=== PATIENT | male | born 1940 | race Caucasian/White ===

== ENCOUNTER → 2016-07-07 | Outpatient (CLI) | payer MEDICARE | END | disposition home or self-care (01) | LOC: PCVCCLINIC 10:20 | PROVIDERS: ATTEND Internal Medicine Cardiovascular Disease | DX: I34.8 Other nonrheumatic mitral valve disorders (principal); G47.33 Obstructive sleep apnea (adult) (pediatric); E78.5 Hyperlipidemia, unspecified | CPT/HCPCS: 85610 ==

== ENCOUNTER → 2016-08-05 | Outpatient (CLI) | payer MEDICARE | END | disposition home or self-care (01) | LOC: PCVCCLINIC 10:40 | PROVIDERS: ATTEND Internal Medicine Cardiovascular Disease | DX: Z95.2 Presence of prosthetic heart valve (principal) | CPT/HCPCS: 85610 ==

== ENCOUNTER → 2016-09-01 | Outpatient (CLI) | payer MEDICARE | END | disposition home or self-care (01) | LOC: PCVCCLINIC 10:24 | PROVIDERS: ATTEND Internal Medicine Cardiovascular Disease | DX: I48.91 Unspecified atrial fibrillation (principal) | CPT/HCPCS: 85610; G0463 ==

== ENCOUNTER → 2016-09-14 | Outpatient (CLI) | payer MEDICARE | END | disposition home or self-care (01) | LOC: PCVCCLINIC 13:39 | PROVIDERS: ATTEND Internal Medicine Cardiovascular Disease | DX: I65.23 Occlusion and stenosis of bilateral carotid arteries (principal); I48.91 Unspecified atrial fibrillation; R09.89 Other specified symptoms and signs involving the circulatory and respiratory systems; E78.00 Pure hypercholesterolemia, unspecified; I49.5 Sick sinus syndrome; I25.10 Atherosclerotic heart disease of native coronary artery without angina pectoris; Z95.2 Presence of prosthetic heart valve | CPT/HCPCS: 80061; 93880; G0463 ==

== ENCOUNTER → 2016-10-02 | Outpatient (CLI) | payer MEDICARE | END | disposition home or self-care (01) | LOC: PCVCCLINIC 09:56 | PROVIDERS: ATTEND Internal Medicine Cardiovascular Disease | DX: Z95.2 Presence of prosthetic heart valve (principal) | CPT/HCPCS: 85610 ==

== ENCOUNTER → 2016-11-06 | Outpatient (CLI) | payer MEDICARE | END | disposition home or self-care (01) | LOC: PCVCCLINIC 11:47 | PROVIDERS: ATTEND Internal Medicine Cardiovascular Disease | DX: I48.2 Chronic atrial fibrillation (principal); I34.1 Nonrheumatic mitral (valve) prolapse; I25.10 Atherosclerotic heart disease of native coronary artery without angina pectoris; E78.00 Pure hypercholesterolemia, unspecified; I50.9 Heart failure, unspecified; Z79.01 Long term (current) use of anticoagulants; Z95.2 Presence of prosthetic heart valve | CPT/HCPCS: 80061; 85610 ==

== ENCOUNTER → 2016-12-24 | Outpatient (CLI) | payer MEDICARE | LOC: PCVCCLINIC 10:36 | PROVIDERS: ATTEND Internal Medicine Cardiovascular Disease | DX: I25.10 Atherosclerotic heart disease of native coronary artery without angina pectoris (principal); I48.0 Paroxysmal atrial fibrillation; I42.8 Other cardiomyopathies; E78.00 Pure hypercholesterolemia, unspecified; I10 Essential (primary) hypertension; G47.33 Obstructive sleep apnea (adult) (pediatric); T14.8 Other injury of unspecified body region; Z95.2 Presence of prosthetic heart valve; Z79.01 Long term (current) use of anticoagulants; X58.XXXD Exposure to other specified factors, subsequent encounter | CPT/HCPCS: 80061; 85610; G0463 ==

== ENCOUNTER → 2017-01-07 | Outpatient (CLI) | payer MEDICARE | END | disposition home or self-care (01) | LOC: PCVCCLINIC 10:20 | PROVIDERS: ATTEND Internal Medicine Cardiovascular Disease | DX: Z51.81 Encounter for therapeutic drug level monitoring (principal); I48.2 Chronic atrial fibrillation; E03.9 Hypothyroidism, unspecified; I25.10 Atherosclerotic heart disease of native coronary artery without angina pectoris; Z95.0 Presence of cardiac pacemaker; I50.9 Heart failure, unspecified; Z95.2 Presence of prosthetic heart valve; I05.9 Rheumatic mitral valve disease, unspecified; E78.00 Pure hypercholesterolemia, unspecified; Z79.01 Long term (current) use of anticoagulants | CPT/HCPCS: 85610 ==

== ENCOUNTER → 2017-01-11 | Outpatient (CLI) | payer MEDICARE | END | disposition home or self-care (01) | LOC: PCVCCLINIC 10:38 | PROVIDERS: ATTEND Internal Medicine Cardiovascular Disease | DX: Z51.81 Encounter for therapeutic drug level monitoring (principal); I34.1 Nonrheumatic mitral (valve) prolapse; I48.0 Paroxysmal atrial fibrillation; E03.9 Hypothyroidism, unspecified; I25.10 Atherosclerotic heart disease of native coronary artery without angina pectoris; I42.8 Other cardiomyopathies; I48.2 Chronic atrial fibrillation; I50.9 Heart failure, unspecified; E78.00 Pure hypercholesterolemia, unspecified; K21.0 Gastro-esophageal reflux disease with esophagitis; I49.5 Sick sinus syndrome; Z95.2 Presence of prosthetic heart valve; Z79.01 Long term (current) use of anticoagulants | CPT/HCPCS: 85610 ==

== ENCOUNTER → 2017-02-18 | Outpatient (CLI) | payer MEDICARE ==
--- NOTE | 2017-02-18 12:53 | PCVCIMAG ---
APPROVED REPORT Study performed: 02/18/2017 08:21:18 EXAM: Comprehensive 2D, Doppler, and color-flow Echocardiogram Patient Location: Echo lab Status: routine BSA: 2.20 HR: 71 bpmBP: 126/64 mmHg Rhythm: Atrial Fibrillation Other Information Study Quality: Technically Difficult Indications Mitral Valve Disease Pacemaker CAD Cardiomyopathy MVR St Tio mechanical, Hx old ND 2D Dimensions LVEF(%): 29.64 (>50%) IVSd: 8.32 (7-11mm)LVOT Diam: 26.36 (18-24mm) LVDd: 56.90 mm PWd: 9.48 (7-11mm)Ascending Ao: 31.70 (22-36mm) LVDs: 48.88 (25-40mm) Left Atrium: 64.64 (27-40mm) Aortic Root: 25.30 mm LV Single Plane 4CH: 30.21 % LV Single Plane 2CH: 33.79 %Cardenas's LVEF: 32.00 % Biplane EF: 34.3 % Volumes Left Atrial Volume (Systole) Single Plane 4CH: 228.97 mLSingle Plane 2CH: 152.89 mL Biplane LA Volume: 194.00 mLLA ESV Index: 88.00 mL/m2 Aortic Valve AoV Peak Candel[place].: 0.99 m/s AO Peak Gr.: 4.18 mmHgLVOT Max P.72 mmHg LVOT Max V: 0.78 m/s STEVE Vmax: 4.31 cm2 AI Vmax: 3.94 m/s AI [place]: 2.11 m/s2 AI PHT: 546.81 ms Mitral Valve MV Peak Gr.: 11.32 mmHg MV Mean Gr.: 5.16 mmHg MV E Max Candelario.: 1.56 m/s MV Max Candelario.: 1.67 m/s MV Mean Candelario.: 1.01 m/s MV VTI: 302.15 mm MV PHT: 58.02 ms MVA (PHT): 3.79 cm2 IVRT: 103.81 ms TDI E/Lateral E': 31.20E/Medial E': 26.00 Medial E' Candelario.: 0.06 m/s Lateral E' Candelario.: 0.05 m/s Pulmonary Valve PV Peak Candelario.: 1.21 m/sPV Peak Gr.: 5.91 mmHg Tricuspid Valve TR Peak Candelario.: 3.07 m/s TR Peak Gr.: 37.82 mmHg TV Vmax: 0.86 m/sPA Pressure: 45.00 mmHg Left Ventricle Left ventricle is at the upper limits of normal. Small apical aneurysm is present. There is moderate global hypokinesis of the left ventricle. Apical akinesis with dilitation is seen. Severe hypokinesis inferolateral browne. There is normal left ventricular wall thickness. Left ventricular systolic function is moderate to severely decreased. LVEF is 30-35%. This study is not technically sufficient to allow evaluation of the LV diastolic function due to atrial fibrillation. Right Ventricle The right ventricle is normal size. The right ventricular systolic function is normal. Atria Left atrium is severely dilated. Shadowing from the mechanical mitral valve limits accurate measurements. Right atrium is moderately dilated. There is a pacemaker lead seen in the right atrium. Aortic Valve The aortic valve is normal in structure. Mild aortic regurgitation. There is no aortic valvular stenosis. Mitral Valve The mitral valve is normal in structure. There is no mitral valve regurgitation noted. No evidence of mitral valve stenosis. Tricuspid Valve The tricuspid valve is normal in structure. Mild to moderate tricuspid regurgitation with a PA pressure of 45mmHg.. Pulmonic Valve The pulmonary valve is normal in structure. There is no pulmonic valvular regurgitation. Great Vessels The aortic root is normal in size. The ascending aorta is normal in size. IVC is mldly dilated and collapses >50% with inspiration. Pericardium There is no pericardial effusion. There is no pleural effusion. <Conclusion> Left ventricular systolic function is moderate to severely decreased. Left ventricular systolic function is moderate to severely decreased. LVEF is 30-35%. This study is not technically sufficient to allow evaluation of the LV diastolic function due to atrial fibrillation. The right ventricle is normal size. Left atrium is severely dilated. Shadowing from the mechanical mitral valve limits accurate measurements. Right atrium is moderately dilated. There is a pacemaker lead seen in the right atrium. The aortic valve is normal in structure. There is no mitral valve regurgitation noted. Mild to moderate tricuspid regurgitation with a PA pressure of 45mmHg.. There is no pericardial effusion.
--- NOTE | 2017-02-18 19:10 | PCVCIMAG ---
APPROVED REPORT Exam: Nuclear Stress Test Indication: CAD Patient Location: Out-Patient Stress Nurse: Meghan Saldivar RN, Gwendolyn Mejía RN [place] Tech:Clemente Cruz NMTCB Ht: 6 ft 0 in Wt: 190 lbs BSA: 2.08 m2 HR: 64 bpm BP: 126/59 mmHg BMI: 25.7 Rhythm: Paced Medical History Medical History: Age, Hyperlipidemia, HTN, CAD, Former Smoker Medications: ASA, Coreg (held 24 hours) Furosemide, Lisinopril, Omeprazole, Simvastatin, Warfarin Allergies: Aldactone, PCN, Tape, Vancomycing Previous Cardiac Procedures: PCI 1994 Pretest Chest Pain Characteristics: No chest pain NM EXAM: Myocardial Perfusion REST/STRESS Imaging Protocol: Rest Tc-99m/Stress Tc-99m 1 day Resting Data Rest SPECT myocardial perfusion imaging was performed in supine position 45 minutes following the intravenous injection of 11.4 mCi of Tc-99m Sestamibi. Time of rest injection: 914 Date: 02/18/2017 Pharmacologic Stress Pharmacologic stress test was performed by injecting Regadenoson 0.4 mg IV push followed by the intravenous injection of 34.8 mCi of Tc-99m Sestamibi. Time of stress injection: 1045 Date: 02/18/2017 The images were gated to evaluate regional wall motion and calculate left ventricular ejection fraction. Study Quality Study: Good Study Data Post stress, the left ventricular ejection was 36%.. SSS: 32 SRS: 31 SDS: 4 TID = 1.08. Perfusion No evidence of stress induced ischemia. 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 Wall Motion Moderate left ventricular dilatation. Moderately decreased left ventricular systolic function. Nuclear Conclusion No evidence of stress induced ischemia. 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 No change since prior study dated March 2015. Interpreted by: Papi Cotton MD Electronically Approved: 02/18/2017 15:49:38 Stress Test Details Stress Test: Pharmacologic stress testing performed using 0.4 mg of regadenoson per 5 mL given IV over 10 seconds. Reason for pharmacologic stress test: physical limitation, PPM. HR Resting HR: 64 bpmMax Heart Rate (APMHR): 144 bpm Max HR Achieved: 67 bpmTarget HR (85% APMHR): 122 bpm % of APMHR: 46 Recovery HR: 62 bpm BP Resting BP: 126/59 mmHg Max BP: 136/59 mmHg ECG Resting ECG: Ventricular paced rhythm Stress ECG: Ventricular paced rhythm Arrhythmia: None Recovery ECG: Ventricular paced rhythm Clinical Reason for Termination: Completed protocol Stress Symptoms: Dyspnea Exercise duration: min 55 sec Exercise capacity: 1.0 METs Overall Exercise Capacity for Age: Not assessed on pharmacologic stress Stress ECG Conclusion paced non diagnostic <Conclusion> paced non diagnostic
== END | disposition home or self-care (01) ==
LOC: PCVCIMAG 08:19
PROVIDERS: ATTEND Internal Medicine Cardiovascular Disease
DX: I08.2 Rheumatic disorders of both aortic and tricuspid valves (principal); I42.9 Cardiomyopathy, unspecified; I25.2 Old myocardial infarction; I25.10 Atherosclerotic heart disease of native coronary artery without angina pectoris; Z95.0 Presence of cardiac pacemaker; Z95.2 Presence of prosthetic heart valve
CPT/HCPCS: 78452; 93017; 93306; A9500

== ENCOUNTER → 2017-08-25 | Outpatient (CLI) | payer MEDICARE | END | disposition home or self-care (01) | LOC: PCVCIMAG 16:00 | DX: I25.10 Atherosclerotic heart disease of native coronary artery without angina pectoris (principal); I48.0 Paroxysmal atrial fibrillation; I42.8 Other cardiomyopathies; I77.9 Disorder of arteries and arterioles, unspecified; I49.5 Sick sinus syndrome; E78.00 Pure hypercholesterolemia, unspecified; G47.33 Obstructive sleep apnea (adult) (pediatric); I08.8 Other rheumatic multiple valve diseases; Z95.0 Presence of cardiac pacemaker; Z95.2 Presence of prosthetic heart valve; Z87.891 Personal history of nicotine dependence; Z79.899 Other long term (current) drug therapy; Z79.01 Long term (current) use of anticoagulants | CPT/HCPCS: 80061; 93306; G0463 ==

== ENCOUNTER → 2018-04-01 | Outpatient (CLI) | payer MEDICARE ==
--- NOTE | 2018-04-01 16:41 | PCVCIMAG ---
APPROVED REPORT Study performed: 04/01/2018 14:44:46 EXAM: Comprehensive 2D, Doppler, and color-flow Echocardiogram Patient Location: Echo lab Room #: 2Status: routine BSA: 2.15 HR: 60 bpmBP: 118/59 mmHg Rhythm: Pacemaker Other Information Study Quality: Technically Difficult Risk Factors: Cardiac Risk Factors: SOB Indications Mitral Valve Disease Atrial Fibrillation CAD Cardiomyopathy 2D Dimensions LVEF(%): 20.00 (>50%) IVSd: 12.30 (7-11mm)LVOT Diam: 24.43 (18-24mm) LVDd: 66.81 mm PWd: 9.62 (7-11mm) LVDs: 59.44 (25-40mm) Aortic Root: 26.60 mm LV Single Plane 4CH: 22.34 % Biplane EF: 18.0 % Volumes Left Atrial Volume (Systole) Single Plane 4CH: 225.94 mLSingle Plane 2CH: 192.43 mL Biplane LA Volume: 213.00 mLLA ESV Index: 99.00 mL/m2 Aortic Valve AoV Peak Candelario.: 0.99 m/s AO Peak Gr.: 4.08 mmHgLVOT Max P.57 mmHg LVOT Max V: 0.60 m/s STEVE Vmax: 2.85 cm2 AI Vmax: 4.01 m/s AI [place]: 2.13 m/s2 AI PHT: 546.57 ms Mitral Valve MV Peak Gr.: 8.69 mmHg MV Mean Gr.: 2.49 mmHg MV E Max Candelario.: 1.43 m/s MV Max Candelario.: 1.47 m/s MV Mean Candelario.: 0.69 m/s MV VTI: 259.06 mm MV PHT: 44.40 ms MVA (PHT): 4.96 cm2 Tricuspid Valve TR Peak Candelario.: 2.96 m/s TR Peak Gr.: 35.13 mmHg TV Vmax: 0.68 m/sPA Pressure: 42.00 mmHg Left Ventricle Left ventricle is severely dilated. There is severe global hypokinesis of the left ventricle.Apical akinesis. Mid distal septal hypokinesis , Inferolateral severe hypokinesis/akinesis Borderline concentric left ventricular hypertrophy. Left ventricular systolic function is severely decreased. LVEF is 15-20%. This study is not technically sufficient to allow evaluation of the LV diastolic function due to atrial fibrillation. Right Ventricle Right ventricle is mildly dilated. The right ventricular systolic function is normal. Atria Left atrium is severely dilated. Right atrium is moderately dilated. Pacemaker lead is present in the right atrium. Aortic Valve Aortic valve is trileaflet. Mild to moderate aortic regurgitation. There is no aortic valvular stenosis. Mitral Valve Prosthetic mitral valve is not well seen but appears to be functioning normally The prosthetic mitral valve is not well visualized due to imaging artifacts from the prosthesis. Shadowing from the prosthetic MV prevents assessment of any regurgitation. No evidence of mitral valve stenosis. Tricuspid Valve The tricuspid valve is normal in structure. Moderate tricuspid regurgitation with a PA pressure of 42 mmHg. Moderate pulmonary hypertension. Pulmonic Valve The pulmonary valve is normal in structure. There is no pulmonic valvular regurgitation. Great Vessels The aortic root is normal in size. The ascending aorta is normal in size. IVC is normal in size and collapses >50% with inspiration. Pericardium There is no pericardial effusion. There is no pleural effusion. <Conclusion> Left ventricle is severely dilated. Left ventricular systolic function is severely decreased. LVEF is 15-20%. This study is not technically sufficient to allow evaluation of the LV diastolic function due to atrial fibrillation. Right ventricle is mildly dilated. Left atrium is severely dilated. Right atrium is moderately dilated. Pacemaker lead is present in the right atrium. Mild to moderate aortic regurgitation. Prosthetic mitral valve is not well seen but appears to be functioning normally Shadowing from the prosthetic MV prevents assessment of any regurgitation. Moderate tricuspid regurgitation with a PA pressure of 42 mmHg. Moderate pulmonary hypertension. The aortic root is normal in size. There is no pericardial effusion.
== END | disposition home or self-care (01) ==
LOC: PCVCIMAG 13:31
PROVIDERS: ATTEND Internal Medicine Cardiovascular Disease
DX: I08.3 Combined rheumatic disorders of mitral, aortic and tricuspid valves (principal); I11.0 Hypertensive heart disease with heart failure; I50.9 Heart failure, unspecified; I25.10 Atherosclerotic heart disease of native coronary artery without angina pectoris; R06.02 Shortness of breath; G47.33 Obstructive sleep apnea (adult) (pediatric); I48.0 Paroxysmal atrial fibrillation; I42.8 Other cardiomyopathies; I49.5 Sick sinus syndrome; I27.20 Pulmonary hypertension, unspecified; E03.9 Hypothyroidism, unspecified; Z95.2 Presence of prosthetic heart valve; Z79.01 Long term (current) use of anticoagulants; Z87.891 Personal history of nicotine dependence; Z95.0 Presence of cardiac pacemaker
CPT/HCPCS: 80061; 93281; 93306; G0463

== ENCOUNTER → 2018-04-15 | Outpatient (CLI) | payer MEDICARE ==
[~2018-04-15] MED LIST: REGADENOSON 0.4 MG/5 ML DISP.SYRIN. IV ONE
--- NOTE | 2018-04-18 20:06 | PCVCIMAG ---
APPROVED REPORT Imaging Protocol: Rest Tc-99m/Stress Tc-99m 1 day Study performed: 04/15/2018 09:12:48 Indication: AFIB, ICM, JIMENEZ Patient Location: Out-Patient Stress Nurse: Gwendolyn Mejía RN, Roxann Ovalle RN [place] Tech:Silva Johnsonchikis [facility] Ht: 6 ft 0 in Wt: 200 lbs BSA: 2.13 m2 HR: 60 bpm BP: 130/60 mmHg BMI: 27.1 Rhythm: Paced Medical History Medical History: HTN, Hyperlipidemia, Atrial Fibrillation, CAD, Former Smoker, Pacemaker, Age, [place] Medications: Allopurinol, carvedilol (held 48h), levothyroxine, prilosec, simvastatin, warfarin, amiodarone, inspra, demadex Allergies: Aldactone, Levofloxacin, Vancomyacin Pretest Chest Pain Characteristics: No chest pain Resting Data Rest SPECT myocardial perfusion imaging was performed in supine position 45 minutes following the intravenous injection of 11.3 mCi of Tc-99m Sestamibi. Time of rest injection: 0900 Date: 04/15/2018 Administration Route: IV Administration Site: Right AC Pharmacologic Stress Pharmacologic stress test was performed by injecting Regadenoson 0.4 mg IV push over 10-15 seconds immediately followed by the intravenous injection of 32.5 mCi of Tc-99m Sestamibi. Time of stress injection: 1030 Date: 04/15/2018 Administration Route: IV Administration Site: Right AC Gated Stress SPECT was performed 45 minutes after stress injection. The images were gated to evaluate regional wall motion and calculate left ventricular ejection fraction. Stress Test Details Stress Test: Pharmacologic stress testing performed using 0.4 mg of regadenoson per 5 mL given IV over 10 seconds. Reason for pharmacologic stress test: physical limitation, pacemaker, ICD. HRMax Heart Rate (APMHR): 143 bpm Resting HR: 60 bpmTarget HR (85% APMHR): 121 bpm Max HR Achieved: 61 bpm % of APMHR: 42 Recovery HR: 60 bpm BP Resting BP: 130/60 mmHg Recovery BP: 97/51 mmHg ECG Resting ECG: Paced Stress ECG: Paced Recovery ECG: Paced Clinical Reason for Termination: Completed protocol Stress Symptoms: Nausea, Lightheaded Exercise duration: 0 min 55 sec Symptoms resolved with caffeine. Stress ECG Conclusion non diagnostic paced Study Quality Study: Good Study Data Post stress, the left ventricular ejection was 30%.. SSS: 29 SRS: 33 SDS: 0 TID = 1.20. Perfusion No evidence of stress induced ischemia. 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 Old complete infarct involving the mid/apical inferoseptal wall of the left ventricle with no yohannes-infarct ischemia. Wall Motion Moderately severe decreased left ventricular systolic function. Nuclear Conclusion No evidence of stress induced ischemia. 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 Old complete infarct involving the mid/apical inferoseptal wall of the left ventricle with no yohannes-infarct ischemia. No change since prior study dated March 2015. Interpreted by: Papi Cotton MD Electronically Approved: 04/15/2018 12:17:03 <Conclusion> non diagnostic paced
== END | disposition home or self-care (01) ==
LOC: PCVCIMAG 08:40
PROVIDERS: ATTEND Internal Medicine Cardiovascular Disease
DX: I25.10 Atherosclerotic heart disease of native coronary artery without angina pectoris (principal); I48.0 Paroxysmal atrial fibrillation; R06.09 Other forms of dyspnea; G47.33 Obstructive sleep apnea (adult) (pediatric); I42.8 Other cardiomyopathies; I11.0 Hypertensive heart disease with heart failure; I50.9 Heart failure, unspecified; E78.00 Pure hypercholesterolemia, unspecified; I34.0 Nonrheumatic mitral (valve) insufficiency; I49.5 Sick sinus syndrome; Z95.2 Presence of prosthetic heart valve; Z87.891 Personal history of nicotine dependence; Z79.01 Long term (current) use of anticoagulants; Z79.899 Other long term (current) drug therapy
CPT/HCPCS: 36415; 78452; 93005; 93017; 93281; A9500; G0463; J2785

== ENCOUNTER → 2018-04-21 | Outpatient (CLI) | payer MEDICARE | END | disposition home or self-care (01) | LOC: PCVCCLINIC 13:00 | PROVIDERS: ATTEND Internal Medicine Cardiovascular Disease | DX: Z51.81 Encounter for therapeutic drug level monitoring (principal); I34.1 Nonrheumatic mitral (valve) prolapse; I25.10 Atherosclerotic heart disease of native coronary artery without angina pectoris; I48.0 Paroxysmal atrial fibrillation; E03.9 Hypothyroidism, unspecified; I11.0 Hypertensive heart disease with heart failure; I50.9 Heart failure, unspecified; Z95.2 Presence of prosthetic heart valve; Z79.01 Long term (current) use of anticoagulants | CPT/HCPCS: 85610 ==

== ENCOUNTER → 2018-07-14 | Outpatient (CLI) | payer MEDICARE | END | disposition home or self-care (01) | LOC: PCVCCLINIC 14:17 | PROVIDERS: ATTEND Internal Medicine Cardiovascular Disease | DX: S32.040G Wedge compression fracture of fourth lumbar vertebra, subsequent encounter for fracture with delayed healing (principal); I48.0 Paroxysmal atrial fibrillation; I25.10 Atherosclerotic heart disease of native coronary artery without angina pectoris; I42.9 Cardiomyopathy, unspecified; Z95.2 Presence of prosthetic heart valve; Z88.8 Allergy status to other drugs, medicaments and biological substances; Z79.899 Other long term (current) drug therapy; Z87.891 Personal history of nicotine dependence; X58.XXXD Exposure to other specified factors, subsequent encounter; Z88.0 Allergy status to penicillin | CPT/HCPCS: 36415; 80061; 85610; 93005; G0463 ==

== ENCOUNTER → 2018-07-20 | Outpatient (CLI) | payer MEDICARE | END | disposition home or self-care (01) | LOC: PCVCCLINIC 13:34 | PROVIDERS: ATTEND Internal Medicine Cardiovascular Disease | DX: S32.040G Wedge compression fracture of fourth lumbar vertebra, subsequent encounter for fracture with delayed healing (principal); I25.10 Atherosclerotic heart disease of native coronary artery without angina pectoris; I48.0 Paroxysmal atrial fibrillation; I42.8 Other cardiomyopathies; I65.23 Occlusion and stenosis of bilateral carotid arteries; E78.00 Pure hypercholesterolemia, unspecified; I10 Essential (primary) hypertension; M54.9 Dorsalgia, unspecified; Z79.899 Other long term (current) drug therapy; Z95.0 Presence of cardiac pacemaker; X58.XXXD Exposure to other specified factors, subsequent encounter | CPT/HCPCS: 93283; G0463 ==

== ENCOUNTER → 2018-10-19 | Outpatient (CLI) | payer MEDICARE ==
--- NOTE | 2018-10-20 09:13 | PCVCIMAG ---
APPROVED REPORT Study performed: 10/19/2018 14:13:25 EXAM: Comprehensive 2D, Doppler, and color-flow Echocardiogram Patient Location: Echo lab Status: routine BSA: 2.09 HR: 60 bpmBP: 112/54 mmHg Rhythm: NSR Other Information Study Quality: Adequate Indications Atrial Fibrillation Dyspnea Pacemaker CAD ischemic cardiomyopathy, prosthetic mitral valve 2D Dimensions IVSd: 11.10 (7-11mm) LVDd: 56.29 mm PWd: 10.66 (7-11mm)Ascending Ao: 35.47 (22-36mm) LVDs: 52.34 (25-40mm) Left Atrium: 70.77 (27-40mm) Aortic Root: 36.32 mm LV Single Plane 4CH: 25.24 % LV Single Plane 2CH: 24.65 % Volumes Left Atrial Volume (Systole) Single Plane 4CH: 196.32 mLSingle Plane 2CH: 194.85 mL LA ESV Index: 95.00 mL/m2 Aortic Valve AoV Peak Candelario.: 0.98 m/s AO Peak Gr.: 3.84 mmHgLVOT Max P.93 mmHg LVOT Max V: 0.69 m/s AI Vmax: 3.70 m/s AI [place]: 2.33 m/s2 AI PHT: 461.72 ms Mitral Valve MV Peak Gr.: 9.67 mmHg MV Mean Gr.: 3.18 mmHgE/A Ratio: 2.5 MV Decel. Time: 184.04 ms MV E Max Candelario.: 1.22 m/s MV A Candelario.: 0.49 m/s MV Max Candel[place].: 1.55 m/s MV Mean Candelario.: 0.79 m/s MV VTI: 419.95 mm MV PHT: 118.04 ms MVA (PHT): 1.86 cm2 Pulmonary Valve PV Peak Candelario.: 0.95 m/sPV Peak Gr.: 3.59 mmHg Tricuspid Valve TR Peak Candelario.: 2.91 m/s TR Peak Gr.: 33.84 mmHg Left Ventricle The left ventricle is mildly dilated. [place], inferior and inferolateral wall motion is akinetic. There is normal left ventricular wall thickness. Left ventricular ejection fraction is severely decreased. LVEF is 20-25%. This study is not technically sufficient to allow evaluation of the LV diastolic function due to pacing. Right Ventricle The right ventricle is normal size. The right ventricular systolic function is normal. Pacemaker lead is present in the right ventricle. Atria Left atrium is markedly-severely dilated. Right atrium is severely dilated. Pacemaker lead is present in the right atrium. Aortic Valve The aortic valve is normal in structure. Mild to moderate aortic regurgitation. There is no aortic valvular stenosis. Mitral Valve Normally functioning prosthetic valve in the mitral position. Trace mitral regurgitation. No evidence of mitral valve stenosis. Tricuspid Valve The tricuspid valve is normal in structure. Moderate tricuspid regurgitation with PAP of 41 mmHg. Pulmonic Valve The pulmonary valve is normal in structure. Mild pulmonic regurgitation. Great Vessels The aortic root is normal in size. IVC is normal in size and collapses >50% with inspiration. Pericardium There is no pericardial effusion. There is no pleural effusion. <Conclusion> The left ventricle is mildly dilated. [place], inferior and inferolateral wall motion is akinetic. Left ventricular ejection fraction is severely decreased. LVEF is 20-25%. This study is not technically sufficient to allow evaluation of the LV diastolic function due to pacing. Pacemaker lead is present in the right ventricle. Left atrium is markedly-severely dilated. Right atrium is severely dilated. Pacemaker lead is present in the right atrium. Mild to moderate aortic regurgitation. Trace mitral regurgitation. Moderate tricuspid regurgitation with PAP of 41 mmHg. The aortic root is normal in size. There is no pericardial effusion.
== END | disposition home or self-care (01) ==
LOC: PCVCIMAG 13:51
PROVIDERS: ATTEND Internal Medicine Cardiovascular Disease
DX: I08.2 Rheumatic disorders of both aortic and tricuspid valves (principal); I48.0 Paroxysmal atrial fibrillation; R06.09 Other forms of dyspnea; I25.10 Atherosclerotic heart disease of native coronary artery without angina pectoris; I42.8 Other cardiomyopathies; E78.00 Pure hypercholesterolemia, unspecified; G47.33 Obstructive sleep apnea (adult) (pediatric); R06.02 Shortness of breath; I10 Essential (primary) hypertension; R60.9 Edema, unspecified; Z95.0 Presence of cardiac pacemaker; Z95.2 Presence of prosthetic heart valve; Z79.899 Other long term (current) drug therapy
CPT/HCPCS: 36415; 80061; 93281; 93306; G0463

== ENCOUNTER → 2018-11-15 | Outpatient (CLI) | payer MEDICARE | END | disposition home or self-care (01) | LOC: PCVCCLINIC 13:00 | PROVIDERS: ATTEND Internal Medicine Cardiovascular Disease | DX: I42.9 Cardiomyopathy, unspecified (principal); I10 Essential (primary) hypertension; E03.8 Other specified hypothyroidism; Z87.891 Personal history of nicotine dependence; Z79.01 Long term (current) use of anticoagulants | CPT/HCPCS: 80061; 93005; G0463 ==

== ENCOUNTER → 2019-02-10 | Outpatient (CLI) | payer MEDICARE | END | disposition home or self-care (01) | LOC: PCVCCLINIC 11:00 | PROVIDERS: ATTEND Internal Medicine Cardiovascular Disease | DX: Z51.81 Encounter for therapeutic drug level monitoring (principal); I34.1 Nonrheumatic mitral (valve) prolapse; I48.0 Paroxysmal atrial fibrillation; I25.10 Atherosclerotic heart disease of native coronary artery without angina pectoris; E78.00 Pure hypercholesterolemia, unspecified; I50.9 Heart failure, unspecified; Z79.01 Long term (current) use of anticoagulants | CPT/HCPCS: 36415 ==

== ENCOUNTER → 2019-02-22 | Outpatient (CLI) | payer MEDICARE ==
--- NOTE | 2019-02-22 15:06 | PCVCIMAG ---
APPROVED REPORT Study performed: 02/22/2019 10:49:04 EXAM: Comprehensive 2D, Doppler, and color-flow Echocardiogram Patient Location: Echo lab Status: routine BSA: 2.01 HR: 60 bpmBP: 90/60 mmHg Rhythm: Atrial Fibrillation Other Information Study Quality: Good Indications Dyspnea MVR, AICD, Edema 2D Dimensions IVSd: 11.75 (7-11mm)LVOT Diam: 23.08 (18-24mm) LVDd: 67.91 mm PWd: 10.04 (7-11mm)Ascending Ao: 35.16 (22-36mm) LVDs: 65.06 (25-40mm) Left Atrium: 72.78 (27-40mm) Aortic Root: 37.03 mm LV Single Plane 4CH: 19.39 % LV Single Plane 2CH: 35.61 % Biplane EF: 26.9 % Volumes Left Atrial Volume (Systole) Single Plane 4CH: 158.06 mLSingle Plane 2CH: 191.22 mL LA ESV Index: 87.00 mL/m2 Aortic Valve AoV Peak [place]el[place].: 0.90 m/s AO Peak Gr.: 3.27 mmHgLVOT Max P.35 mmHg LVOT Max V: 0.55 m/s STEVE Vmax: 2.56 cm2 AI Vmax: 3.58 m/s AI [place]: 1.50 m/s2 AI PHT: 691.76 ms Mitral Valve MV VTI: 244.33 mm MV PHT: 92.66 ms MVA (PHT): 2.30 cm2 Pulmonary Valve PV Peak Gr.: 1.20 mmHg Tricuspid Valve TR Peak [place].: 1.80 m/s TR Peak Gr.: 19.13 mmHg Left Ventricle Left ventricle is mild to moderately dilated. [place], inferior and inferolateral wall is akinetic. There is normal left ventricular wall thickness. Left ventricular ejection fraction is severely decreased. LVEF is 15-20%. This study is not technically sufficient to allow evaluation of the LV diastolic function due to atrial fibrillation. Right Ventricle The right ventricle is normal size. The right ventricular systolic function is normal. Catheter is present in the right ventricle. Atria Left atrium is severely dilated. Right atrium is moderately dilated. A catheter is seen in the right atrium consistent with history. Aortic Valve The aortic valve is normal in structure. Trace aortic regurgitation. There is no aortic valvular stenosis. Mitral Valve Normallly functioning prosthetic mitral valve. Trace to mild mitral regurgitation. No evidence of mitral valve stenosis. Tricuspid Valve The tricuspid valve is normal in structure. Trace to mild tricuspid regurgitation. Pulmonary artery pressure is 30mmhg. Pulmonic Valve The pulmonary valve is normal in structure. Trace pulmonic regurgitation. Great Vessels The aortic root is normal in size. The IVC is dilated. Pericardium There is a no pericardial effusion. There is a pleural effusion noted. <Conclusion> Left ventricle is mild to moderately dilated. [place], inferior and inferolateral wall is akinetic. Left ventricular ejection fraction is severely decreased. LVEF is 15-20%. This study is not technically sufficient to allow evaluation of the LV diastolic function due to atrial fibrillation. Catheter is present in the right ventricle. The right ventricular systolic function is normal. Right atrium is moderately dilated. A catheter is seen in the right atrium consistent with history. Trace aortic regurgitation. Trace to mild mitral regurgitation. Trace to mild tricuspid regurgitation. Pulmonary artery pressure is 30mmhg. The aortic root is normal in size. There is a no pericardial effusion.
== END | disposition home or self-care (01) ==
LOC: PCVCIMAG 10:48
PROVIDERS: ATTEND Internal Medicine Cardiovascular Disease
DX: I08.1 Rheumatic disorders of both mitral and tricuspid valves (principal); I25.10 Atherosclerotic heart disease of native coronary artery without angina pectoris; I49.5 Sick sinus syndrome; I65.23 Occlusion and stenosis of bilateral carotid arteries; I48.0 Paroxysmal atrial fibrillation; I42.8 Other cardiomyopathies; I50.23 Acute on chronic systolic (congestive) heart failure; E78.00 Pure hypercholesterolemia, unspecified; D68.59 Other primary thrombophilia; Z87.891 Personal history of nicotine dependence
CPT/HCPCS: 93005; 93306; G0463

== ENCOUNTER → 2019-03-06 | Outpatient (CLI) | payer MEDICARE | END | disposition home or self-care (01) | LOC: PCVCCLINIC 12:30 | PROVIDERS: ATTEND Nurse Practitioner Adult Health | DX: I11.0 Hypertensive heart disease with heart failure (principal); I50.23 Acute on chronic systolic (congestive) heart failure; I25.10 Atherosclerotic heart disease of native coronary artery without angina pectoris; E78.00 Pure hypercholesterolemia, unspecified; G47.33 Obstructive sleep apnea (adult) (pediatric); I48.0 Paroxysmal atrial fibrillation; I65.23 Occlusion and stenosis of bilateral carotid arteries; I42.8 Other cardiomyopathies; I49.5 Sick sinus syndrome; I34.1 Nonrheumatic mitral (valve) prolapse; Z95.2 Presence of prosthetic heart valve; E03.9 Hypothyroidism, unspecified; M10.9 Gout, unspecified; M81.0 Age-related osteoporosis without current pathological fracture; Z87.891 Personal history of nicotine dependence; Z88.8 Allergy status to other drugs, medicaments and biological substances | CPT/HCPCS: 36415; 80061; 93005; G0463 ==

== ENCOUNTER → 2019-03-16 | Outpatient (CLI) | payer MEDICARE | END | disposition home or self-care (01) | LOC: PCVCCLINIC 13:00 | PROVIDERS: ATTEND Nurse Practitioner Adult Health | DX: I25.10 Atherosclerotic heart disease of native coronary artery without angina pectoris (principal); I42.8 Other cardiomyopathies; I65.23 Occlusion and stenosis of bilateral carotid arteries; G47.33 Obstructive sleep apnea (adult) (pediatric); I50.9 Heart failure, unspecified; I49.5 Sick sinus syndrome; R06.02 Shortness of breath; Z88.3 Allergy status to other anti-infective agents | CPT/HCPCS: 36415; 93005; G0463 ==